=== PATIENT | female | born 1985 | race African-American/Black ===

== ENCOUNTER 2023-11-28 07:38 | Emergency (ER) | payer OTHER ==
[~2023-11-28] VITALS: Ht 167.6 cm; Wt 64.0 kg
[~2023-11-28 07:38] MED LIST: IBUP-779
[2023-11-28 07:53] VITALS: O2SAT 99
[2023-11-28 08:24] LABS: EOSINOPHILS % 0.9 % (0.0-5.0); HEMATOCRIT. 41.1 % (36.0-48.0); HEMOGLOBIN. 13.6 g/dL (12.0-16.0); LYMPHOCYTES % 37.2 % (20.0-50.0); MEAN CORPUSCULAR HEMOGLOBIN 27.6 pg (28.0-32.0); MEAN CORPUSCULAR HGB CONC 33.2 g/dL (31.0-37.0); MEAN CORPUSCULAR VOLUME 83.1 fL (81.0-99.0); MEAN PLATELET VOLUME 7.3 fl (7.4-10.4); MONOCYTES % 7.7 % (2.0-8.0); NEUTROPHILS % 53.2 % (40.0-76.0); PLATELET 316 x1000/uL (130-400); RED BLOOD CELL COUNT 4.94 mill/uL (4.2-5.4); RED CELL DISTRIBUTION WIDTH 14.1 % (11.6-14.6); WHITE BLOOD COUNT 3.9 x1000/uL (4.5-11.0)
[2023-11-28] MEDS ORDERED: ONDANSETRON HCL 4MG TABLET PO ONE (08:30)
[2023-11-28 08:35] LABS: HCG SCREEN NEGATIVE
[2023-11-28 08:36] LABS: CHLORIDE 102 mEq/L (98-107); POTASSIUM 3.7 mEq/L (3.5-5.1); SODIUM 136 mEq/L (136-145)
[2023-11-28 08:37] LABS: CALCIUM 9.3 mg/dL (8.7-10.4); CARBON DIOXIDE 28 mEq/L (21-32)
[2023-11-28 08:42] LABS: CREATININE 0.6 mg/dL (0.6-1.0); GLUCOSE 111 mg/dL (70-105); UREA NITROGEN BLOOD 7 mg/dL (9-23)
[2023-11-28 08:46] LABS: TROPONIN I HIGH SENSITIVITY < 4 ng/L (3.0-34)
[2023-11-28] MEDS ORDERED: LORAZEPAM 1MG TABLET PO ONE (09:30)
[2023-11-28] MEDS: SODIUM CHLORIDE 0.9% 1,000 ML IV ONE (09:30)
[2023-11-28] MEDS ORDERED: HYDR10TA34 MT (10:33)
[2023-11-28] MEDS: LORAZEPAM 1MG TABLET PO NR (10:40)
[2023-11-28] MEDS: ONDANSETRON HCL 4MG TABLET PO NR (10:40)
[2023-11-28 10:49] VITALS: BP 171/89; PULSE 66; RESP 18; TEMP 98
== END 2023-11-28 10:54 | disposition home or self-care (01) ==
LOC: ER 07:38
DX: R42 Dizziness and giddiness (principal); F41.9 Anxiety disorder, unspecified; J45.909 Unspecified asthma, uncomplicated
CPT/HCPCS: 99284; 80048; 84703; 85025; 84484; 36415; 93005; Q0162; J7030